=== PATIENT | male | born 1985 | race Caucasian/White ===

== ENCOUNTER 2016-10-05 14:06 | Emergency (ER) | payer OTHER ==
[~2016-10-05] VITALS: Ht 185.4 cm; Wt 99.8 kg
[~2016-10-05 14:06] MED LIST: ANUCORT HC25 MG PR; AUGMENTIN 875875 MG PO; CIPRO 500MG (E500 MG PO; CIPRO 500MG TA500 MG PO; CLONAZEPAM0.5 MG PO; CYMBALTA 30 MG30 MG PO; CYMBALTA60 MG PO; DULERA1 ARO INH; DULOXETINE HYDR60 MG PO; FLAG500 PO; FLECTOR1.3% TOP; HYDROXYZINE HCL25 MG PO; IMITREX50 MG PO; LANSOPRAZOLE30 MG PO; LYRICA150 MG PO; LYRICA75 MG PO; MEDROL DOSEPAK1 PAC PO; MELOXICAM7.5 MG PO; METHOCARBAMOL500 MG PO; NEXIUM 40MG40 MG PO; OXYCODONE AND A1 TA7 PO; PROAIR HFA0.09 MG/Ac PO; REGLAN10 MG PO; SENNA DOCUSATE1 TAB PO; VERAPAMIL HYDR120 M1 PO; VICODIN10-300 PO; XANAX0.25 MG PO
--- NOTE | 2016-10-05 14:55 | ED GENERAL ADULT ---
History of Present Illness General Chief Complaint: Lower Extremity Problems Stated Complaint: BILATERAL LEG PAIN, UNABLE TO WALK Source: patient Exam Limitations: no limitations Allergies Coded Allergies: sulfamethoxazole (From BACTRIM) (Severe, HIVES, N/V/D 10/05/16) trimethoprim (From BACTRIM) (Severe, HIVES, N/V/D 10/05/16) codeine (VOMITING 10/05/16) erythromycin base (VOMITING 10/05/16) Reconcile Medications Albuterol Sulfate (Proair Hfa) 90 MCG HFA.AER.AD 2 PUF INH Q4-6 PRN PRN EXERCISE INDUCED ASTHMA (Reported) Alprazolam 2 MG TABLET 1 TAB PO TID PRN ANXIETY (Reported) Amoxicillin/Clavulanate Potass (Amox-Clav 875-125 MG Tablet) 875 MG-125 MG TABLET 1 TAB PO BID ANTIBIOTIC (Reported) Biotin (Meribin) (Unknown Strength) CAPSULE (Unknown Dose) PO DAILY SUPPLEMENT (Reported) Buspirone HCl 10 MG TABLET 1 TAB PO BID ANXIETY (Reported) Lansoprazole 30 MG CAPSULE.DR 1 CAP PO DAILY GI (Reported) Magnesium Oxide (Magnesium) 500 MG CAPSULE 1 CAP PO DAILY SUPPLEMENT ( Reported) Multivitamin (Multivitamins) 1 EACH CAPSULE 1 CAP PO DAILY SUPPLEMENT ( Reported) Prednisone 20 MG TABLET 1 TAB PO TID STEROID (Reported) Triage Note: PT TO ED FOR C/C OF LOSS OF FEELING/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 PT STATES "I FEEL LIKE MY LEGS JUST STOPPED WORKING, I TRIED TO GET UP OUT OF BED AND MY LEGS JUST COLLAPSED." PT IS UNSURE IF IT'S RELATED TO RECENT START OF BUSPAR 4 DAYS AGO. ALSO ON PREDNISONE AND AMOXICILLIN FOR BRONCHITIS. ALSO REPORTS FEELING DIZZY AND RINGING IN EARS. HX OF MENEIRES DISEASE. ALL NEUROS INTACT, +CMS TO BILAT LEGS. ABLE TO MOVE SELF IN WHEELCHAIR WITH LEGS. Triage Nurses Notes Reviewed? yes HPI: 31-year-old male with a history of CP, chronic back pain, postconcussion headaches, Mnire's disease, anxiety, depression, IBS, GERD, exercise-induced asthma presenting with bilateral lower extremity pain, weakness, and inability to ambulate. Reports he awoke for his day at 12:30 PM, stood up to go to the bathroom and his legs collapsed from under him. He reports sharp/cramping pain from bilateral mid thighs down to the lateral feet. At baseline ambulates unassisted. Denies fevers, back pain, paresthesias. Only new medication is BuSpar. Denies drug or alcohol use. Patient also complains of dizziness with left ear tinnitus. Has a history of M nire's disease for which he's been treated multiple times in the past. Denies headache, diplopia, visual changes, nausea, vomiting. (SANDRA HANLEY,RADU) Vital Signs & Intake/Output Vital Signs & Intake/Output Vital Signs Date Time Temp Pulse Resp B/P B/P Pulse O2 O2 Flow FiO2 Mean Ox Delivery Rate 10/05 194 97.2 83 18 120/74 98 10/05 1845 97.9 68 18 128/65 97 10/05 1418 97.8 66 15 132/84 97 Room Air Room Air Past History Travel History Traveled to [place] past 21 day No Medical History Any Pertinent Medical History? 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 No (SANDRA HANLEY,RADU) Review of Systems Review of Systems Constitutional: Reports: weakness. Denies: chills, fever. EENTM: Reports: hearing changes (left ear tinnitus). Denies: blurred vision, double vision, visual changes, ear discharge, ear pain. Respiratory: Reports: no symptoms. Cardiovascular: Reports: no symptoms. GI: Reports: no symptoms. Genitourinary: Reports: no symptoms. Musculoskeletal: Reports: muscle pain (BLE's). Denies: joint pain. Skin: Denies: rash. Neurological/Psychological: Reports: weakness, other (dizziness). Denies: headache, numbness, paresthesia, tremors. (SANDRA HANLEY,RADU) Physical Exam Physical Exam General Appearance: well developed/nourished, no apparent distress Head: atraumatic Ears, Nose, Throat: normal ENT inspection Neck: normal inspection, no lymphadenopathy Respiratory: normal breath sounds, lungs clear Cardiovascular: regular rate/rhythm Back: normal inspection, normal range of motion, no vertebral tenderness, no muscular tenderness to palpation Extremities: normal inspection, normal range of motion, no edema, no erythema and no increased warmth, no abrasions, lacerations, or other signs of physical trauma Neurologic/Psych: no motor/sensory deficits, awake, alert, oriented x 3, 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 Skin: intact, normal color, warm/dry Core Measures ACS in differential dx? No CVA/TIA Diagnosis: No Severe Sepsis Present: No Septic Shock Present: No (SANDRA HANLEY,RADU) Progress Differential Diagnoses I considered the following diagnoses in my evaluation of the patient: [ Dehydration versus rhabdomyolysis versus electrolyte abnormality versus Guillain -Fuentes syndrome versus cauda equina versus DVT versus arterial occlusion versus conversion disorder] Initial ED EKG: none (SANDRA HANLEY,RADU) Plan of Care: Orders Procedure Date/time Status MRI-THORACIC SPINE 10/06 1823 Active MRI-LUMBAR SPINE 10/06 1823 Active COMPREHENSIVE METABOLIC PANEL 10/05 1516 Complete CREATINE PHOSPHOKINASE 10/05 1516 Complete CBC WITHOUT DIFFERENTIAL 10/05 1516 Complete Laboratory Tests 10/05/16 1531: Anion Gap 10, Estimated GFR > 60, BUN/Creatinine Ratio 21.3, Glucose 83, Calcium 9.0, Total Bilirubin 0.3, AST 23, ALT 70, Alkaline Phosphatase 71, Creatine Kinase 54 L, Total Protein 6.5, Albumin 4.0, Globulin 2.5, Albumin/Globulin Ratio 1.6, CBC w Diff NO MAN DIFF REQ, RBC 5.08, MCV 89.0, MCH 29.4, RDW 13.0, MPV 8.1, Gran % 66.5, Lymphocytes % 26.6, Monocytes % 5.8, Eosinophils % 0.8, Basophils % 0.3, Absolute Granulocytes 10.8 H, Absolute Lymphocytes 4.3 H, Absolute Monocytes 0.9 H, Absolute Eosinophils 0.1, Absolute Basophils 0.1, PUBS MCHC 33.0 Labs only remarkable for a white count to 16, likely secondary to recently finished prednisone course. Spoke with covering neuro provider who requested MRI imaging of thoracic and lumbar spine. MRI unavailable at this time and hospitalist requested CT thoracic and lumbar spine as well. Pt refused CT imaging and requested to be transferred to [facility] for MRI imaging and neuro consult. Pt accepted and transferred to [place] for higher level of care. 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 I have also reviewed all the pertinent lab results and diagnostic results. I agree with the findings and the plan of care as documented in the PA's/HOT WOUND SPRING PRODUCTION SUPERVISOR's documentation. [X] I have reviewed the ED Record and agree with the PA's/HOT WOUND SPRING PRODUCTION SUPERVISOR's documentation. [] Additions or exceptions (if any) to the PAs/HOT WOUND SPRING PRODUCTION SUPERVISOR's note and plan are summarized below: [] (MIRELA CLEVELAND,SHIMON Palacios) Critical Care Note Critical Care Note Critical Care Time: non-applicable (RADU FLORES PA-C)
[2016-10-05 15:40] LABS: ABSOLUTE BASOPHIL COUNT 0.1 /CUMM (0.0-0.2); ABSOLUTE EOSINOPHIL COUNT 0.1 /CUMM (0.0-0.7); ABSOLUTE LYMPH COUNT 4.3 /CUMM (1.2-3.4); ABSOLUTE MONOCYTE COUNT 0.9 /CUMM (0.10-0.60); BASOPHIL % 0.3 % (0.0-2.0); EOSINOPHIL % 0.8 % (0-5); GRANULOCYTE % 66.5 % (42.2-75.2); HEMATOCRIT 45.2 % (42-52); MEAN CORPUSCULAR HGB 29.4 PG (27.0-31.0); MEAN PLATELET VOLUME 8.1 FL (7.4-10.4); PLATELET COUNT 280 /CUMM (130-400); RED BLOOD CELL CT 5.08 /CUMM (4.70-6.10); WHITE BLOOD CELL COUNT 16.3 /CUMM (4.8-10.8)
[2016-10-05 15:41] LABS: ABSOLUTE GRANULOCYTE CT 10.8 /CUMM (1.4-6.5)
[2016-10-05] MEDS ORDERED: ALPRAZOLAM2 M2 PO (16:37)
[2016-10-05] MEDS ORDERED: LANSOPRAZOLE30 M2 PO (16:37)
[2016-10-05] MEDS ORDERED: BUSPIRONE HCL10 M1 PO (16:37)
[2016-10-05] MEDS ORDERED: AMOX-CLAV 875-1 EACH PO (16:38)
[2016-10-05] MEDS ORDERED: PREDNISONE20 M1 PO (16:38)
[2016-10-05] MEDS ORDERED: PROAIR HFA8.5 GM INH (16:38)
[2016-10-05] MEDS ORDERED: MAGNESIUM500 M2 PO (16:39)
[2016-10-05] MEDS ORDERED: MULTIVITAMINS1 EAC8 PO (16:40)
[2016-10-05] MEDS ORDERED: MERIBIN5 M1 PO (16:40)
[2016-10-05 19:41] VITALS: BP 120/74
== END 2016-10-05 19:52 | disposition short-term general hospital (02) ==
LOC: ERH 14:06
PROVIDERS: Physician Assistant
DX: R53.1 Weakness (principal); M79.605 Pain in left leg; J45.990 Exercise induced bronchospasm; Z87.891 Personal history of nicotine dependence; F12.10 Cannabis abuse, uncomplicated